=== PATIENT | female | born 1955 | race African-American/Black ===

== ENCOUNTER 2017-06-02 14:39 | Outpatient (CLI) | payer OTHER | END 2017-06-02 14:40 | disposition home or self-care (01) | LOC: BICMRI 14:39 | PROVIDERS: ATTEND Family Medicine | DX: M54.16 Radiculopathy, lumbar region (principal); M48.061 Spinal stenosis, lumbar region without neurogenic claudication; M48.07 Spinal stenosis, lumbosacral region | CPT/HCPCS: 72148 ==

== ENCOUNTER 2018-02-03 23:35 | Emergency (ER) | payer BC ==
[2018-02-04 00:35] LABS: #Basophils 0.1 thou/uL (0.0-0.2); #Eosinphils 0.4 thou/uL (0.0-0.7); #Lymphocytes 1.8 thou/uL (1.20-3.40); #Monocytes 0.7 thou/uL (0.11-0.59); #Neutrophils 8.8 thou/uL (1.40-6.50); %Basophils 0.5 % (0.0-1.0); %Lymphocytes 15.2 % (21.0-51.0); %Monocytes 5.9 % (0.0-10.0); %Neutrophils 75.5 % (42.0-75.0); Mean Corpuscular HGB CONC 31.8 g/dL (32.0-36.0); Mean Corpuscular Hemoglobin 28.9 pg (27.0-31.0); Mean Corpuscular Volume 90.7 fL (78.0-98.0); Platelet Count 215 thou/uL (130-400); RBC Distribution Width 12.9 % (11.5-14.5); Red Blood Cell (RBC) Count 4.51 mill/uL (4.20-5.40); White Blood Cell (WBC) Count 11.6 thou/uL (4.8-10.8)
[2018-02-04 00:55] LABS: ALT (SGPT) 12 U/L (8-55); AST (SGOT) 19 U/L (5-34); Albumin 3.9 g/dL (3.4-4.8); Alkaline Phosphatase 76 U/L (40-150); Anion Gap 14 mmol/L (10-20); BUN (Urea Nitrogen) 20 mg/dL (9.8-20.1); Bilirubin, Total 0.4 mg/dL (0.2-1.2); CK (CPK) 143 U/L (29-168); Calc. Creatinine Clearance 0 mL/min (70-130); Calcium 9.5 mg/dL (7.8-10.44); Carbon Dioxide 28 mmol/L (23-31); Chloride 103 mmol/L (98-107); Estimated GFR-MDRD 72; Globulin 3.9 g/dL (2.4-3.5); Glucose 109 mg/dL (80-115); Lipase 11 U/L (8-78); Potassium 3.6 mmol/L (3.5-5.1); Protein, Total 7.8 g/dL (6.0-8.3); Sodium 141 mmol/L (136-145)
[2018-02-04] MEDS ORDERED: Dexamethasone 10 MG/ML VIAL ONE (00:55)
[2018-02-04] MEDS ORDERED: Meclizine HCl 25 MG TAB ONE (00:55)
[2018-02-04] MEDS ORDERED: Ondansetron PF 4 MG/2 ML Vial ONE (00:55)
[2018-02-04] MEDS ORDERED: Lorazepam 2 MG/ML VIAL ONE (00:55)
--- NOTE | 2018-02-04 07:53 | CT ---
CT HEAD WITHOUT CONTRAST: Date: 02/04/18 Multiple axial tomograms obtained through the head without IV enhancement. INDICATION: Dizziness. Mental status change. FINDINGS: Ventricles are of normal size and position. There is no evidence of intracranial mass or hemorrhage. No infarct. There is pineal calcification. 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 Sinuses are clear. IMPRESSION: No evidence of acute intracranial process. 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 Recommend elective MRI of brain to further evaluate. POS: YARELIS
--- NOTE | 2018-02-04 08:04 | RAD ---
RADIOGRAPH CHEST 1 VIEW: HISTORY: 62-year-old female with nausea. FINDINGS: There is cardiomegaly. There is no evidence of air space density, pulmonary edema, or pneumothorax. T he lateral costophrenic angles are sharp. IMPRESSION: 1. No acute pulmonary findings. 2. Cardiomegaly without congestive heart failure. leonor [] POS: YARELIS
--- NOTE | 2018-02-07 14:15 | EKG ---
Test Reason : DIZZINESS Blood Pressure : / mmHG Vent. Rate : 064 BPM Atrial Rate : 064 BPM P-R Int : 200 ms QRS Dur : 102 ms QT Int : 432 ms P-R-T Axes : 079 -39 -51 degrees QTc Int : 445 ms Sinus rhythm with occasional , and consecutive Premature ventricular complexes Left axis deviation Moderate voltage criteria for LVH, may be normal variant Abnormal ECG Confirmed by LAZARUS GOTTI, LINDA ([id number]), supervising film or videotape editor MASOUD HENDRIX ([id number]) on 02/07/2018 2:15:38 PM Referred By: Confirmed By:LINDA QIU MD
== END 2018-02-04 02:22 | disposition home or self-care (01) ==
LOC: ERS 23:35
DX: H81.01 Meniere's disease, right ear (principal); E34.8 Other specified endocrine disorders; I11.0 Hypertensive heart disease with heart failure; I50.9 Heart failure, unspecified; K21.9 Gastro-esophageal reflux disease without esophagitis; E78.5 Hyperlipidemia, unspecified; J45.909 Unspecified asthma, uncomplicated; Z79.899 Other long term (current) drug therapy; Z79.82 Long term (current) use of aspirin
CPT/HCPCS: 70450; 71045; 80053; 82550; 83690; 83880; 84484; 85025; 93005; 94760; 96374; 96375; J1100; J2060; J2405

== ENCOUNTER 2019-02-12 14:00 | Emergency (ER) | payer BC ==
--- NOTE | 2019-02-12 15:30 | ULT ---
Exam: Right lower extremity venous ultrasound with Doppler HISTORY: Right leg pain. Numbness. COMPARISON: None TECHNIQUE: Grayscale, color flow, Doppler imaging and spectral wave form is performed in the right lo wer extremity venous system FINDINGS: There is compressibility, presence of flow and augmentation in the common femoral vein, femoral vein, popliteal vein. There is flow and augmentation in the posterior tibial vein, greater saphenous vein and profunda femoral vein IMPRESSION: No evidence of thrombus in the right lower extremity venous system
[2019-02-12 16:41] LABS: #Basophils 0.1 thou/uL (0.0-0.2); #Eosinphils 0.1 thou/uL (0.0-0.7); #Monocytes 0.5 thou/uL (0.11-0.59); #Neutrophils 5.5 thou/uL (1.40-6.50); %Eosinophils 0.6 % (0.0-10.0); %Lymphocytes 32.6 % (21.0-51.0); %Monocytes 5.3 % (0.0-10.0); %Neutrophils 60.5 % (42.0-75.0); Hemoglobin 14.1 g/dL (12.0-16.0); Mean Corpuscular HGB CONC 33.1 g/dL (32.0-36.0); Mean Corpuscular Hemoglobin 30.3 pg (27.0-31.0); Mean Corpuscular Volume 91.7 fL (78.0-98.0); Mean Platelet Volume 9.6 fL (7.4-10.4); Platelet Count 170 thou/uL (130-400); RBC Distribution Width 12.3 % (11.5-14.5); Red Blood Cell (RBC) Count 4.65 mill/uL (4.20-5.40); White Blood Cell (WBC) Count 9.2 thou/uL (4.8-10.8)
[2019-02-12 17:05] LABS: Anion Gap 12 mmol/L (10-20); BUN (Urea Nitrogen) 17 mg/dL (9.8-20.1); Calc. Creatinine Clearance 0 mL/min (70-130); Calcium 9.4 mg/dL (7.8-10.44); Carbon Dioxide 28 mmol/L (23-31); Chloride 102 mmol/L (98-107); Estimated GFR-MDRD 83; Glucose 86 mg/dL (80-115); Potassium 4.1 mmol/L (3.5-5.1); Sodium 138 mmol/L (136-145)
== END 2019-02-12 17:20 | disposition home or self-care (01) ==
LOC: ERS 14:00
DX: G62.9 Polyneuropathy, unspecified (principal); I48.91 Unspecified atrial fibrillation; J45.909 Unspecified asthma, uncomplicated; E78.5 Hyperlipidemia, unspecified; I11.0 Hypertensive heart disease with heart failure; I50.9 Heart failure, unspecified; E78.00 Pure hypercholesterolemia, unspecified; Z79.82 Long term (current) use of aspirin; Z79.899 Other long term (current) drug therapy; Z79.891 Long term (current) use of opiate analgesic
CPT/HCPCS: 36415; 80048; 83880; 85025

== ENCOUNTER 2019-03-02 06:09 | Outpatient (CLI) | payer BC ==
--- NOTE | 2019-03-07 17:45 | EKG ---
Test Reason : Blood Pressure : / mmHG Vent. Rate : 061 BPM Atrial Rate : 061 BPM P-R Int : 258 ms QRS Dur : 114 ms QT Int : 444 ms P-R-T Axes : 074 -38 -11 degrees QTc Int : 446 ms Sinus rhythm with sinus arrhythmia with 1st degree A-V block Left axis deviation Nonspecific ST abnormality Abnormal ECG When compared with ECG of 03-FEB-2018 23:49, Premature ventricular complexes are no longer Present [place] interval has increased Non-specific change in ST segment in Anterior leads T wave inversion less evident in Inferior leads Confirmed by DR. Kinga ROMAN ([id number]) on 03/07/2019 5:44:40 PM Referred By: ELISA Confirmed By:DR. Kinga ROMAN
== END 2019-03-02 06:10 | disposition home or self-care (01) ==
LOC: LABBT 06:09
PROVIDERS: ATTEND Student in an Organized Health Care Education/Training Program
DX: Z01.810 Encounter for preprocedural cardiovascular examination (principal)
CPT/HCPCS: 93005; 93010

== ENCOUNTER → 2019-03-05 | Day surgery (SDC) | payer BC ==
[2019-03-02 14:21] VITALS: BMI 29.7
[2019-03-02 15:52] LABS: Mean Corpuscular HGB CONC 32.7 g/dL (32.0-36.0); Mean Corpuscular Hemoglobin 29.9 pg (27.0-31.0); Mean Corpuscular Volume 91.3 fL (78.0-98.0); Mean Platelet Volume 10.2 fL (7.4-10.4); Platelet Count 218 thou/uL (130-400); RBC Distribution Width 12.6 % (11.5-14.5); Red Blood Cell (RBC) Count 4.33 mill/uL (4.20-5.40); White Blood Cell (WBC) Count 9.7 thou/uL (4.8-10.8)
[2019-03-02 16:17] LABS: ALT (SGPT) 9 U/L (8-55); AST (SGOT) 14 U/L (5-34); Albumin 3.9 g/dL (3.4-4.8); Alkaline Phosphatase 74 U/L (40-110); Anion Gap 11 mmol/L (10-20); BUN (Urea Nitrogen) 22 mg/dL (9.8-20.1); Bilirubin, Direct 0.2 mg/dL (0.1-0.3); Bilirubin, Total 0.4 mg/dL (0.2-1.2); Calc. Creatinine Clearance 0 mL/min (70-130); Calcium 9.5 mg/dL (7.8-10.44); Carbon Dioxide 32 mmol/L (23-31); Chloride 100 mmol/L (98-107); Estimated GFR-MDRD 61; Glucose 97 mg/dL (80-115); Potassium 3.8 mmol/L (3.5-5.1); Protein, Total 6.9 g/dL (6.0-8.3); Sodium 139 mmol/L (136-145)
[~2019-03-05] MED LIST: Bupivacaine PF 0.5% 30 ML VIAL ONE; CeleCOXIB 100 MG CAP ONE; Famotidine/PF 20 mg/2ml Vial ONE; Fentanyl 100 MCG/2 ML VIAL ONE; Gabapentin 300 MG CAP ONE; Glycopyrrolate 0.2 MG/ML 5 ML SYRINGE ONE; Lidocaine 1% PF 5 ML VIAL ONE; Lidocaine 1% w/Epinephrine 1:100K 20 ML VIAL ONE; Midazolam HCl 2 mg/2 ml Vial ONE; Ondansetron PF 4 MG/2 ML Vial ONE; PROPOFOL 200 MG/20 ML VIAL ONE; Promethazine HCl 25 MG/ML VIAL ONE
--- NOTE | 2019-03-05 10:00 | HP ---
DATE OF OPERATION: 03/05/2019. CHIEF COMPLAINT: Vulvar lesion. HISTORY OF PRESENT ILLNESS: This is a 63-year-old, G4, P3, A1, who presented to my office for annual routine wellness exam with complaints of irritation on the vulvar area. She underwent a vulvar biopsy, that showed OMAR-3. She was counseled for excision in the OR. The patient has received preoperative clearance from Cardiology and Dr. Joshi. ALLERGIES: BACTRIM, SULFA, AND POSSIBLY LATEX. MEDICATIONS: 1. Amlodipine 5 mg p.o. daily. 2. Aspirin 81 mg p.o. daily. 3. Carvedilol one p.o. b.i.d. 4. Flecainide 50 mg p.o. daily. 5. Hydrochlorothiazide 25 mg p.o. daily. 6. Losartan 100 mg p.o. daily. 7. Nasonex daily. 8. Harmony-3. 9. Symbicort two puffs inhalation daily. PAST MEDICAL HISTORY: 1. Peripheral vascular disease. 2. Prediabetes. 3. Asthma. 4. Atrial flutter. 5. Sleep apnea. 6. Hyperlipidemia. 7. Hypertension. 8. Acid reflux. 9. History of constipation. SOCIAL HISTORY: Negative x3. 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 Normal mammogram in 2018. History of hysterectomy. PAST SURGICAL HISTORY: 1. Total hysterectomy. 2. Left hip replacement. REVIEW OF SYSTEMS: Negative except as noted in HPI. PHYSICAL EXAMINATION: GENERAL: No acute distress. Alert and oriented x3. CARDIAC: Regular rhythm and rate. LUNGS: Clear. ABDOMEN: Soft and nontender. EXTREMITIES: Chronic stasis edema. PELVIC: Deferred to OR. 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 I have discussed surgical plan including risks and benefits. All questions were answered and postoperative care was discussed with the patient as well. She will follow up with me in 2 weeks postoperative time status post clearance from Cardiology and Electrophysiology. Job ID: [id number]
--- NOTE | 2019-03-06 10:21 | OP ---
DATE OF PROCEDURE: 03/05/2019 PREOPERATIVE DIAGNOSIS: Vulvar intraepithelial neoplasia, grade 3. POSTOPERATIVE DIAGNOSIS: Vulvar intraepithelial neoplasia, grade 3. PROCEDURE PERFORMED: Wide local excision of the vulva. ANESTHESIA: General and LMA. ESTIMATED BLOOD LOSS: Less than 5 mL. COMPLICATIONS: None. DRAINS: None. PATHOLOGY: Perineal lesion. FINDINGS: Normal bilateral labia and mons as well as perianal area. A raised irregular pigmented lesion approximately 1 x 2 cm present in the middle of the perineum, that was completely excised with a margin present. DESCRIPTION OF PROCEDURE: The patient was taken to the operating room, where general anesthesia was obtained without difficulty. The patient was prepped and draped in a sterile fashion in the dorsal lithotomy position. The area of the perineal lesion was marked with approximately 1 cm margin in a mellissa shape in the midline of the perineum with a marker. This area was infiltrated with 1% lidocaine with epi. The knife was then used to excise the perineal lesion around the marked edges, ensuring a good margin of the grossly visible abnormality. Once fully excised, the lesion was tagged with a Vicryl at 12 o'clock. Hemostasis was achieved of the subcutaneous tissue. Deep stitches of 2-0 Vicryl and U-shaped stitch were placed and multiple layers of 2-0 Vicryl were placed to approximate the skin edges. Once the skin was approximated, a 2-0 Vicryl was then used in a subcuticular fashion to close the defect and hemostasis was noted to be excellent. The patient tolerated the procedure well. Sponge and needle counts were correct x2. The patient was taken to recovery room in stable condition. Job ID: [id number]
== END ==
LOC: CANPRESDC → SDC 06:02
PROVIDERS: ATTEND Student in an Organized Health Care Education/Training Program
PROC: 0UBMXZZ Excision of Vulva, External Approach (ICD-10-PCS; principal; 2019-03-05)
DX: D07.1 Carcinoma in situ of vulva (principal); R87.623 High grade squamous intraepithelial lesion on cytologic smear of vagina (HGSIL); R73.03 Prediabetes; J45.909 Unspecified asthma, uncomplicated; I48.92 Unspecified atrial flutter; G47.30 Sleep apnea, unspecified; E78.5 Hyperlipidemia, unspecified; I10 Essential (primary) hypertension; K21.9 Gastro-esophageal reflux disease without esophagitis; Z79.82 Long term (current) use of aspirin; Z79.899 Other long term (current) drug therapy; Z88.2 Allergy status to sulfonamides; Z91.040 Latex allergy status; Z96.642 Presence of left artificial hip joint; Z90.710 Acquired absence of both cervix and uterus
CPT/HCPCS: 80048; 80076; 85027; 86850; 86900; 86901; 88305; J0690; J2001; J2250; J2405; J2550; J2704; J3010; S0020; S0028